=== PATIENT | male | born 1995 | race Caucasian/White ===

== ENCOUNTER 2019-03-08 22:56 | Emergency (ER) | payer BC ==
[~2019-03-08] VITALS: Ht 175.3 cm; Wt 12.3 kg
[~2019-03-08 22:56] MED LIST: AMOXICILLIN 8751 TAB PO; PREDNISONE20 MG PO; PROVENTIL0.09 MG/A1 IH; RITALIN 5MG5 MG/TAB PO; TUSS PO; [UNRECOGNIZED DRUG - REMARK] PO
[2019-03-08 23:05] VITALS: TEMP 97.8
[2019-03-09 00:03] LABS: BASO # 0.1 (0.0-0.2); BASO % 0.8 % (0.0-2.0); EOS # 0.3 (0.0-0.7); EOS % 3.3 % (0-4.0); GRAN % 46.3 % (42.2-75.2); HEMATOCRIT 45.4 % (42.0-52.0); HEMOGLOBIN 14.9 g/dl (13.5-18.0); LYMPH # 3.7 (1.2-3.4); LYMPH % 43.1 % (20.0-51.0); MEAN CELL VOLUME 92 fl (80.0-100.0); MEAN CORPUSCULAR HEMOGLOBIN 30 pg (27.0-31.0); MEAN CORPUSCULAR HGB CONC 33 g/dl (33.0-37.0); MEAN PLATELET VOLUME 10.8 fl (7.4-10.4); MONO # 0.5 (0.1-0.6); MONO % 6.3 % (1.7-9.3); PLATELET COUNT 218 K/mm3 (130-400); RED BLOOD COUNT 4.92 M/mm3 (4.20-5.60); REDCELL DISTRIBUTION WIDTH-CV 12.8 % (11.5-14.5)
[2019-03-09] MEDS ORDERED: METADATECD40 PO (00:09)
[2019-03-09 00:30] LABS: ALANINE AMINOTRANSFERASE 55 U/L (21-72); ALBUMIN 4.5 gm/dL (3.5-5.0); ALCOHOL(ethanol),MEDICAL 195 mg/dL; ALKALINE PHOSPHATASE 98 U/L (50-136); ANION GAP 16 mmol/L (7-16); AST,SGOT 32 U/L (15-37); BILIRUBIN,TOTAL 0.3 mg/dL (0.0-1.0); BLOOD UREA NITROGEN 12 mg/dL (9-20); CALCIUM 9.7 mg/dL (8.4-10.2); CARBON DIOXIDE 23 mmol/L (22-30); CHLORIDE 108 mmol/L (98-107); CREATININE, serum 0.93 (0.66-1.25); GLUCOSE 106 mg/dL (74-106); POTASSIUM 4.1 mmol/L (3.4-5.0); SODIUM 147 mmol/L (137-145); TOTAL PROTEIN 7.9 gm/dL (6.4-8.2)
[2019-03-09 00:34] LABS: TROPONIN-I < 0.012 ng/mL (0.000-0.035)
[2019-03-09 01:05] VITALS: BP 115/66; PULSE 87
== END 2019-03-09 01:15 | disposition home or self-care (01) ==
LOC: COL.ER 22:56
PROVIDERS: Emergency Medicine
DX: R00.2 Palpitations (principal); F90.9 Attention-deficit hyperactivity disorder, unspecified type; J45.909 Unspecified asthma, uncomplicated; F10.10 Alcohol abuse, uncomplicated
CPT/HCPCS: J7030

== ENCOUNTER → 2019-04-24 | Emergency (ER) | payer BC ==
[~2019-04-24] VITALS: Ht 177.8 cm; Wt 127.3 kg
[~2019-04-24] MED LIST changes: +METADATECD40 PO; +NORCO 325 MG-51 TAB PO
[2019-04-24 13:18] VITALS: BP 148/65; PULSE 85; TEMP 98.9
== END ==
LOC: COL.ER 11:55
DX: S60.221A Contusion of right hand, initial encounter (principal); F90.9 Attention-deficit hyperactivity disorder, unspecified type; J45.909 Unspecified asthma, uncomplicated; F17.210 Nicotine dependence, cigarettes, uncomplicated; W22.8XXA Striking against or struck by other objects, initial encounter; Y92.009 Unspecified place in unspecified non-institutional (private) residence as the place of occurrence of the external cause
CPT/HCPCS: Q4021

== ENCOUNTER 2020-03-08 23:59 | Emergency (ER) | payer BC ==
[~2020-03-08] VITALS: Ht 177.8 cm; Wt 127.3 kg
[2020-03-09 00:05] VITALS: BP 115/82; TEMP 98.1
[2020-03-09] MEDS ORDERED: PREDNISONE20 MG PO (01:43)
[2020-03-09 01:57] VITALS: PULSE 99
== END 2020-03-09 01:57 | disposition home or self-care (01) ==
LOC: COL.ER 23:59
DX: J45.901 Unspecified asthma with (acute) exacerbation (principal); F90.9 Attention-deficit hyperactivity disorder, unspecified type; F17.220 Nicotine dependence, chewing tobacco, uncomplicated
CPT/HCPCS: J7512

== ENCOUNTER 2020-03-21 09:15 | Emergency (ER) | payer BC ==
[~2020-03-21] VITALS: Ht 177.8 cm; Wt 136.4 kg
[2020-03-21 09:23] VITALS: TEMP 98.5
[2020-03-21] MEDS ORDERED: PREDNISONE20 MG PO (10:05)
[2020-03-21 11:11] VITALS: BP 124/71; PULSE 75
== END 2020-03-21 11:05 | disposition home or self-care (01) ==
LOC: COL.ER 09:15
DX: J45.901 Unspecified asthma with (acute) exacerbation (principal); F90.9 Attention-deficit hyperactivity disorder, unspecified type; F17.210 Nicotine dependence, cigarettes, uncomplicated; Z79.52 Long term (current) use of systemic steroids
CPT/HCPCS: J7512

== ENCOUNTER 2020-04-07 14:27 | Emergency (ER) | payer BC ==
[~2020-04-07] VITALS: Ht 177.8 cm; Wt 127.3 kg
[2020-04-07 14:32] VITALS: BP 125/79; TEMP 98.5
[2020-04-07] MEDS ORDERED: MEDROL 4MG DOSPA4 MG PO (15:05)
[2020-04-07 15:30] VITALS: PULSE 91
== END 2020-04-07 15:30 | disposition home or self-care (01) ==
LOC: COL.ER 14:27
DX: J45.901 Unspecified asthma with (acute) exacerbation (principal); Z79.899 Other long term (current) drug therapy
CPT/HCPCS: J7512

== ENCOUNTER → 2020-04-30 | Emergency (ER) | payer BC ==
[~2020-04-30] VITALS: Ht 177.8 cm; Wt 127.3 kg
[~2020-04-30] MED LIST changes: +MEDROL 4MG DOSPA4 MG PO
[2020-04-30 08:40] VITALS: BP 125/108; TEMP 99.6
[2020-04-30 10:23] LABS: BASO % 0.4 % (0.0-2.0); EOS # 0.2 (0.0-0.7); EOS % 1.9 % (0-4.0); GRAN # 7.7 (1.4-6.5); GRAN % 68.9 % (42.2-75.2); HEMATOCRIT 47.4 % (42.0-52.0); LYMPH # 2.4 (1.2-3.4); MEAN CELL VOLUME 93 fl (80.0-100.0); MEAN CORPUSCULAR HEMOGLOBIN 31 pg (27.0-31.0); MEAN CORPUSCULAR HGB CONC 34 g/dl (33.0-37.0); MEAN PLATELET VOLUME 10.7 fl (7.4-10.4); MONO # 0.7 (0.1-0.6); MONO % 6.4 % (1.7-9.3); PLATELET COUNT 228 K/mm3 (130-400); RED BLOOD COUNT 5.11 M/mm3 (4.20-5.60); REDCELL DISTRIBUTION WIDTH-CV 13.3 % (11.5-14.5)
[2020-04-30 10:39] LABS: ALBUMIN 4.7 gm/dL (3.5-5.0); BILIRUBIN,TOTAL 0.7 mg/dL (0.0-1.0); CALCIUM 9.7 mg/dL (8.4-10.2); CREATININE, serum 0.93 (0.66-1.25); POTASSIUM 3.7 mmol/L (3.4-5.0)
[2020-04-30 11:05] VITALS: PULSE 95
== END ==
LOC: COL.ER 08:37
PROVIDERS: Nurse Practitioner Primary Care
DX: J45.901 Unspecified asthma with (acute) exacerbation (principal); F17.210 Nicotine dependence, cigarettes, uncomplicated; Z79.52 Long term (current) use of systemic steroids
CPT/HCPCS: J2930